=== PATIENT | male | born 1995 | race Hispanic/Latino ===

== ENCOUNTER 2019-07-05 23:00 | Emergency (ER) | payer BC, OTHER ==
[2019-07-05] MEDS ORDERED: LIDOCAINE HCL 1% 20 ML VIAL ONE (23:48)
== END 2019-07-06 01:10 | disposition home or self-care (01) ==
LOC: EDH 23:00
DX: S91.202A Unspecified open wound of left great toe with damage to nail, initial encounter (principal); W22.8XXA Striking against or struck by other objects, initial encounter; Y93.89 Activity, other specified; Y92.89 Other specified places as the place of occurrence of the external cause; Y99.8 Other external cause status
CPT/HCPCS: 11730; 73660